=== PATIENT | female | born 1950 | race Caucasian/White ===

== ENCOUNTER 2017-12-16 09:51 | Emergency (ER) | payer OTHER ==
[~2017-12-16] VITALS: Ht 149.9 cm; Wt 76.5 kg
[2017-12-16] MEDS ORDERED: MOTRIN600 MG PO (11:59)
[2017-12-16 12:58] VITALS: BP 121/72
== END 2017-12-16 13:00 | disposition home or self-care (01) ==
LOC: EME 09:51
DX: S83.92XA Sprain of unspecified site of left knee, initial encounter (principal); M79.605 Pain in left leg; X50.1XXA Overexertion from prolonged static or awkward postures, initial encounter
CPT/HCPCS: 73564; 93971; 99281; 99284